=== PATIENT | male | born 1960 | race Caucasian/White ===

== ENCOUNTER 2022-11-22 19:55 | Emergency (ER) | payer SELFPAY ==
[2022-11-22 20:22] VITALS: BP 179/83; PULSE 80; RESP 18; TEMP 37.1; O2SAT 89; BMI 30.4
[2022-11-22 22:29] VITALS: BP 134/73; PULSE 79; RESP 20; O2SAT 93
--- NOTE | 2022-11-22 22:58 | XRR_ITS ---
PROCEDURE INFORMATION: Exam: XR Cervical Spine Exam date and time: 11/22/2022 11:10 PM Age: 62 years old Clinical indication: Pain; Cervicalgia; Additional info: Neck pain TECHNIQUE: Imaging protocol: Radiologic exam of the cervical spine. Views: 2 or 3 views. COMPARISON: No relevant prior studies available. FINDINGS: Bones/joints: Normal. No acute fracture. Normal alignment. Soft tissues: Unremarkable. XR/XR cervical spine 3V* [id number] IMPRESSION: No acute findings.
--- NOTE | 2022-11-22 23:32 | ED_ITS ---
HPI - Neck Pain/Injury General: Chief Complaint: Neck Pain/Injury Stated Complaint: Neck Pain Time Seen by Provider: 11/22/22 22:34 Source: patient History of Present Illness: 62-year-old male complaining of right-sided greater than left-sided neck pain and spasm for the last 4 days. Pain and spasm is nonradicular. It is worse with turning his head. No significant weakness. No dizziness or numbness. He was seen at an outside facility, and given muscle relaxers and anti- inflammatories there without much relief. This happened years ago he says, which improved with rest, muscle relaxers, and pain medication. No known trauma. He does lift heavy objects at work. MD complaint: neck pain Onset (ago): day(s) Place: other Radiation: right lateral and right shoulder Severity: severe Quality: stabbing and aching Duration: constant Exacerbating factors: movement of neck Associated symptoms: Reports nausea; Denies difficulty walking, dizziness, fevers/chills, headache(s), tingling or weakness Review of Systems Const: Denies: fever(s) ENMT: Denies: throat pain or hoarseness Card: Denies: chest pain Resp: Denies: dyspnea, productive cough or non-productive cough GI: Reports: nausea; Denies: abdominal pain Neuro: Denies: headache(s), difficulty walking or dizziness Physical Exam HENMT: COMMON NORMALS: normocephalic, atraumatic and Normal external nose present HEAD & SCALP: normocephalic and atraumatic FACE & SINUS: normal facial exam NOSE: Normal external nose present Eye: COMMON NORMALS: Equal, round and reactive pupils present and EOMs intact bilaterally PUPIL: Yes Equal, round and reactive pupils present Neck/C-Spine: GENERAL: Yes trachea midline CERVICAL SPINE: Yes pain with cervical ROM, No Cervical spine tenderness and Yes Paracervical muscle tenderness Chest: COMMONS NORMALS: normal inspection of the chest Resp: COMMON NORMALS: normal respiratory effort, No use of accessory muscles and clear to auscultation bilaterally AUSCULTATION: clear to auscultation bilaterally Cardio: COMMON NORMALS: regular rate and regular rhythm RATE: regular rate RHYTHM: regular rhythm Course Vital Signs: Vital signs: Vital Signs Temperature 98.7 F 11/22/22 20:22 Pulse Rate 60 11/23/22 01:46 Respiratory Rate 16 11/23/22 01:46 Blood Pressure 115/76 11/23/22 01:46 Pulse Oximetry 94 11/23/22 01:46 Oxygen Delivery Me thod Room Air 11/23/22 00:00 Oxygen Flow Rate 2 11/22/22 22:29 MDM - Neck Pain/Injury Medical Decision Making C-spine x-ray did not show any acute findings. Patient improved following administration of medication. Received dexamethasone which should help for a few days. Will prescribe a very short course of muscle relaxers. Lab Data Radiology Impressions Cervical Spine X-Ray 11/22/22 22:58 IMPRESSION: No acute findings. Discharge Plan Discharge Patient Disposition: Home Clinical Impression: Torticollis Condition: Stable Prescriptions: New Ativan 1 mg tablet 1 mg PO TID PRN (Reason: muscle spasm) Qty: 7 0RF ketorolac 10 mg tablet 10 mg PO TID PRN (Reason: pain) Qty: 10 0RF Discharge Orders: Discharge ED (Routine); Ordered 11/23/22 Ordered By: Manoj Nur Patient Instructions: Spasmodic Torticollis (ED), Pain Management Activity Restrictions/Additional Instructions: Return for vision problems, speech or language problems, weakness, numbness, other concerning symptoms. Medication as directed. See your doctor this week in follow-up. Coding Level of Care Code ED Product Grader for Maxi Carver
[2022-11-22] MEDS: orphenadrine 30 mg/mL Inj 2 mL 60 MG IVP (23:34)
[2022-11-22] MEDS: dexamethasone 10 mg/mL INJ IVP (23:38)
[2022-11-22 23:40] VITALS: RESP 18; O2SAT 95
[2022-11-22] MEDS: HYDROmorphone 1 mg/mL INJ 1 mL IVP (23:40)
[2022-11-22] MEDS: ondansetron 2 mg/ML SDV 2 mL 4 MG IVP (23:45)
[2022-11-23] VITALS: BP 116/63; PULSE 65; O2SAT 94
[2022-11-23 00:30] VITALS: BP 107/68; PULSE 69; RESP 16; O2SAT 96
[2022-11-23] MEDS: ketorolac 30 mg/mL INJ 15 MG IVP (00:58)
[2022-11-23 00:59] VITALS: RESP 16
[2022-11-23] MEDS: HYDROmorphone 1 mg/mL INJ 1 mL 0.5 MG IVP (00:59)
[2022-11-23 01:46] VITALS: BP 115/76; PULSE 60; RESP 16; O2SAT 94
--- NOTE | 2022-12-03 13:51 | DCPLANNER ---
TCM called patient due to no primary care physician - no answer at this time.
== END 2022-11-23 01:48 | disposition home or self-care (01) ==
PROVIDERS: Emergency Provider Emergency Medicine
DX: M43.6 Torticollis (principal)
CPT/HCPCS: 72040; 96374; 96375; 96376; 99284; J1100; J1170; J1885; J2360; J2405